=== PATIENT | female | born 1975 | race Caucasian/White ===

== ENCOUNTER → 2018-12-11 | Outpatient (CLI) | payer BC, OTHER | END | disposition home or self-care (01) | LOC: CFH 12:13 | PROVIDERS: ATTEND Nurse Practitioner Family | DX: E04.2 Nontoxic multinodular goiter (principal); E03.9 Hypothyroidism, unspecified | CPT/HCPCS: 76536 ==

== ENCOUNTER 2018-12-25 10:49 | Outpatient (CLI) | payer BC, OTHER ==
[~2018-12-25 10:49] MED LIST: LIDOCAINE-MPF 1%, 5ML ONE
== END 2018-12-25 23:59 | disposition home or self-care (01) ==
LOC: RAD 10:49
PROVIDERS: ATTEND Nurse Practitioner Family
DX: E04.1 Nontoxic single thyroid nodule (principal)
CPT/HCPCS: 10005; 76942; 88173

== ENCOUNTER 2020-04-14 15:01 | Emergency (ER) | payer BC, OTHER ==
[~2020-04-14] VITALS: Ht 165.1 cm; Wt 62.1 kg
[~2020-04-14 15:01] MED LIST changes: +AMPH15TA PO; +IBUP-1222 PO; -LIDOCAINE-MPF 1%, 5ML ONE; +MV-M1TAB16 PO; +OXYC5TAB3 PO; +THYR60TA PO; +TURM500C4 PO; +biotin PO; +vitamin a PO
--- NOTE | 2020-04-14 15:43 | NUR ---
Pt to room from lobby.
--- NOTE | 2020-04-14 16:15 | NUR ---
PT HAS CO OF ABDOMINAL PAIN AFTER EATING GREASY OR FATTY FOODS. PT STATES SYMPTOMS STARTED 2 WEEKS AGO. N/V/D AFTER EATING FOODS. UNABLE TO CONSUME MUCH FOOD. PT ALSO HAS CO OF INCREASED FREQUENCY W URINATION. DENIES CP, SOB OR COUGH. PT NOT IN DISTRESS.
[2020-04-14 16:35] VITALS: BP 110/65
--- NOTE | 2020-04-14 16:38 | NUR ---
PT GIVEN UA CUP. AMBULATED TO BATHROOM W STEADY GAIT
--- NOTE | 2020-04-14 17:08 | NUR ---
MD CARSON AT BEDSIDE.
[2020-04-14 17:29] LABS: BASOPHILS # (AUTO) 0.02 x10^3/uL (0-0.1); BASOPHILS % (AUTO) 0 % (0-1); EOSINOPHILS # (AUTO) 0.13 x10^3/uL (0-0.4); EOSINOPHILS % (AUTO) 2 % (1-7); LYMPHOCYTES # (AUTO) 2.36 x10^3/uL (1-3.4); LYMPHOCYTES % (AUTO) 29 % (22-44); MD NO; MEAN CORPUSCULAR HEMOGLOBIN 29.9 pg (27.0-34.8); MEAN CORPUSCULAR HGB CONC 33.3 g/dL (32.4-35.8); MEAN CORPUSCULAR VOLUME 89.7 fL (80-100); MEAN PLATELET VOLUME 9.3 fL (7.4-10.4); MONOCYTES # (AUTO) 0.41 x10^3/uL (0.2-0.8); MONOCYTES % (AUTO) 5 % (2-9); NEUTROPHILS # (AUTO) 5.36 x10^3/uL (1.8-6.8); NEUTROPHILS % (AUTO) 65 % (42-75); PLATELET COUNT 223 x10^3/uL (130-400); RED BLOOD COUNT 4.65 x10^6/uL (3.82-5.3)
[2020-04-14 17:39] LABS: ALANINE AMINOTRANSFERASE 15 U/L (12-78); ALBUMIN 4.2 g/dL (3.4-5.0); ANION GAP 6 mmol/L (5-15); CHLORIDE 107 mmol/L (98-107); CREATININE 0.65 mg/dL (0.55-1.02)
[2020-04-14 17:41] LABS: ALKALINE PHOSPHATASE 45 U/L (45-117); BILIRUBIN,TOTAL 0.7 mg/dL (0.2-1.0); TOTAL PROTEIN 7.2 g/dL (6.4-8.2)
[2020-04-14] MEDS ORDERED: SODIUM CHLORIDE FLUSH 10ML SYR IVF ONE (18:00)
[2020-04-14 18:08] LABS: MICROSCOPIC NOT IND
--- NOTE | 2020-04-14 18:28 | NUR ---
PT RESTING. WAITING FOR RESULTS. VSS
--- NOTE | 2020-04-14 18:52 | NUR ---
Patient/Caregiver given discharge instructions and they have confirmed that they understand the instructions. Patient ambulatory with steady gait.
== END 2020-04-14 18:54 | disposition home or self-care (01) ==
LOC: ED 18:50
DX: R10.13 Epigastric pain (principal); R10.11 Right upper quadrant pain; R19.7 Diarrhea, unspecified; R11.0 Nausea; E03.9 Hypothyroidism, unspecified
CPT/HCPCS: 36415; 76700; 80053; 81003; 83605; 83690; 85025; 99284

== ENCOUNTER → 2020-08-10 | Outpatient (CLI) | payer BC | END | disposition home or self-care (01) | LOC: CFH 10:45 | PROVIDERS: ATTEND Specialist | DX: Z12.31 Encounter for screening mammogram for malignant neoplasm of breast (principal) | CPT/HCPCS: 77063; 77067 ==

== ENCOUNTER → 2020-08-24 | Outpatient (CLI) | payer BC ==
[~2020-08-24] MED LIST changes: +SPIR100T4 PO
[2020-08-24 09:14] LABS: ALBUMIN 4.5 g/dL (3.4-5.0); CALCIUM 9.5 mg/dL (8.5-10.1)
[2020-08-24 09:17] LABS: ALANINE AMINOTRANSFERASE 15 U/L (12-78); ALKALINE PHOSPHATASE 48 U/L (45-117); BILIRUBIN,TOTAL 0.6 mg/dL (0.2-1.0); CREATININE 0.71 mg/dL (0.55-1.02); TOTAL PROTEIN 7.8 g/dL (6.4-8.2)
[2020-08-24 09:24] LABS: ANION GAP 5 mmol/L (5-15); CHLORIDE 109 mmol/L (98-107)
== END | disposition home or self-care (01) ==
LOC: STAR 08:00
PROVIDERS: ATTEND Orthopaedic Surgery
DX: Z01.812 Encounter for preprocedural laboratory examination (principal); R22.31 Localized swelling, mass and lump, right upper limb; M79.641 Pain in right hand; Z20.828 Contact with and (suspected) exposure to other viral communicable diseases
CPT/HCPCS: 80053; 87635

== ENCOUNTER 2020-08-30 07:34 | Day surgery (SDC) | payer BC ==
[~2020-08-30] VITALS: Ht 165.1 cm; Wt 63.1 kg
[2020-08-30] MEDS ORDERED: ACETAMINOPHEN 500 MG TABLET PO STA (07:57)
[2020-08-30 07:59] VITALS: BP 131/82
[2020-08-30] MEDS ORDERED: CHLORHEXIDINE 15 ML UDC MM ONE (08:00)
[2020-08-30] MEDS ORDERED: LIDOCAINE-MPF 1%, 2ML ONE (08:11)
[2020-08-30] MEDS ORDERED: HYDROmorphone 1 MG/ML, 1ML INJ IVPush PRN (08:30)
[2020-08-30] MEDS ORDERED: PROMETHAZINE 25 MG/ML, 1ML IVPush PRN (08:30)
[2020-08-30] MEDS ORDERED: LABETALOL 5MG/ML, 20ML IV PRN (08:30)
[2020-08-30] MEDS ORDERED: OXYcodone 5 MG/5 ML ORAL.SOL UDC PO PRN (08:30)
[2020-08-30] MEDS ORDERED: LACTATED RINGERS 1,000 ML IV SCH (08:30)
[2020-08-30] MEDS ORDERED: ONDANSETRON 2MG/ML, 2ML IVPush ONE (08:30)
[2020-08-30] MEDS ORDERED: LIDOCAINE-MPF 1%, 2ML INFIL ONE (08:30)
[2020-08-30] MEDS ORDERED: hydrALAzine 20 MG/ML, 1ML IV PRN (08:30)
[2020-08-30] MEDS ORDERED: EPHEDRINE 50 MG/ML, 1ML IVPush PRN (08:30)
[2020-08-30] MEDS ORDERED: FENTANYL PF 100 MCG/2ML IV PRN (08:30)
[2020-08-30] MEDS ORDERED: ONDANSETRON 2MG/ML, 2ML IVPush PRN (08:30)
[2020-08-30] MEDS ORDERED: BUPIVACAINE/PF 0.5% INFIL ONE ×2 (08:45→09:34)
[2020-08-30] MEDS ORDERED: LIDOCAINE 1%, 10ML INFIL ONE (08:45)
[2020-08-30] MEDS ORDERED: PROPOFOL 10 MG/ML, 20ML ONE ×3 (08:53→09:20)
[2020-08-30] MEDS ORDERED: CEFAZOLIN 1,000 MG ONE ×2 (09:00)
[2020-08-30] MEDS ORDERED: KETOROLAC 30 MG/1 ML ONE (09:00)
[2020-08-30] MEDS ORDERED: BUPIVACAINE/PF 0.5% ONE (09:04)
[2020-08-30] MEDS ORDERED: LIDOCAINE 1%, 20ML ONE (09:04)
== END 2020-08-30 11:06 | disposition home or self-care (01) ==
LOC: OUT 07:34
PROVIDERS: ATTEND Orthopaedic Surgery
DX: M67.841 Other specified disorders of synovium, right hand (principal); E03.9 Hypothyroidism, unspecified; F90.9 Attention-deficit hyperactivity disorder, unspecified type; M79.7 Fibromyalgia; Z79.890 Hormone replacement therapy; Z79.899 Other long term (current) drug therapy; Z88.2 Allergy status to sulfonamides; Z88.8 Allergy status to other drugs, medicaments and biological substances; Z82.61 Family history of arthritis
CPT/HCPCS: 26440; 88307; J0690; J1885; J2405; J2704; J7120